=== PATIENT | female | born 1985 | race Caucasian/White ===

== ENCOUNTER 2024-03-28 05:33 | Inpatient (IN) | payer BC ==
[2024-03-28] MEDS ORDERED: HYDROcodone/Acetaminophen 5/325 mg Tablet PO PRN ×2 (08:11→17:33)
[2024-03-28] MEDS ORDERED: Ibuprofen 800 MG TAB PO PRN (08:11)
[2024-03-28] MEDS ORDERED: Promethazine HCl 25 MG/ML VIAL IM PRN ×3 (08:11→17:33)
[2024-03-28] MEDS ORDERED: Diphenoxylate HCl/Atropine Tablet PO PRN (08:11)
[2024-03-28] MEDS ORDERED: Misoprostol 200 MCG TAB PR PRN (08:11)
[2024-03-28] MEDS ORDERED: Oxytocin 30 units/NS 500 ML 500 ML IV SCH ×2 (08:11)
[2024-03-28] MEDS ORDERED: Ondansetron PF 4 MG/2 ML Vial IVP PRN ×3 (08:11→17:33)
[2024-03-28] MEDS ORDERED: Acetaminophen 500 MG TAB PO PRN (08:11)
[2024-03-28] MEDS ORDERED: Carboprost 250 MCG/ML AMP IM PRN (08:11)
[2024-03-28] MEDS ORDERED: fentaNYL 50 mcg/mL 1 mL Vial SLOW IVP PRN (08:11)
[2024-03-28] MEDS ORDERED: hydrALAZINE 20 MG/ML VIAL SLOW IVP PRN ×2 (08:11→17:33)
[2024-03-28] MEDS ORDERED: Tranexamic Acid 1,000 MG/10 ML VIAL IVP PRN (08:11)
[2024-03-28] MEDS ORDERED: Lidocaine 1% (PF) 30 ML VIAL SC PRN (08:11)
[2024-03-28] MEDS ORDERED: Methylergonovine 0.2 MG/ML VIAL IM PRN (08:11)
[2024-03-28 08:16] VITALS: BMI 38.2
[2024-03-28 08:36] LABS: ALT (SGPT) 28 U/L (8-55); AST (SGOT) 23 U/L (5-34); Albumin 2.5 g/dL (3.5-5.0); Alkaline Phosphatase 231 U/L (40-110); Anion Gap 15 mmol/L (10-20); BUN (Urea Nitrogen) 13 mg/dL (7.0-18.7); Bilirubin, Total 0.3 mg/dL (0.2-1.2); Calc. Creatinine Clearance 201 mL/min (70-130); Calcium 8.7 mg/dL (7.8-10.44); Carbon Dioxide 20 mmol/L (22-29); Chloride 106 mmol/L (98-107); Estimated GFR 115; Globulin 3.4 g/dL (2.4-3.5); Glucose 106 mg/dL (70-105); Hematocrit 36.1 % (34.9-44.5); Hemoglobin 11.7 g/dL (12.0-15.5); Mean Corpuscular HGB CONC 32.4 g/dL (32.0-36.0); Mean Corpuscular Hemoglobin 29.5 pg (27.0-33.0); Mean Corpuscular Volume 90.9 fL (81.6-98.3); Mean Platelet Volume 9.2 fL (7.4-10.4); Platelet Count 264 10x3/uL (150-450); Potassium 4.3 mmol/L (3.5-5.1); Protein, Total 5.9 g/dL (6.0-8.3); RBC Distribution Width 13.9 % (11.5-14.5); Red Blood Cell (RBC) Count 3.97 10x6/uL (3.90-5.03); Sodium 137 mmol/L (136-145); White Blood Cell (WBC) Count 10.9 10x3/uL (3.5-10.5)
[2024-03-28 08:54] LABS: HBsAg Index 0.21 S/CO (0-0.99); Hep B Surf Ag - L&D Non-Reactive S/CO (NonReactive)
[2024-03-28 08:56] LABS: Syphilis Antibody Nonreactive (Nonreactive); Syphilis Antibody Index 0.03 S/CO (<1.00 Non-Reactive)
[2024-03-28] MEDS ORDERED: Moisturizing Cream (Eucerin) 113 GM JAR TOP PRN (09:53)
[2024-03-28] MEDS ORDERED: Naloxone HCl 0.4 mg/ml Vial IVP PRN ×2 (09:53)
[2024-03-28] MEDS ORDERED: diphenhydrAMINE 50 MG/ML VIAL IVP PRN (09:53)
[2024-03-28] MEDS ORDERED: Lactated Ringer's 500 ML IV PRN (09:53)
[2024-03-28] MEDS ORDERED: ePHEDrine Sulfate 50 MG/10 ML VIAL SLOW IVP PRN (09:53)
[2024-03-28] MEDS ORDERED: fentaNYL 2 mcg/Ropivacaine 0.2% Epidural 100 ML CADD EPIDURAL SCH (10:00)
[2024-03-28] MEDS ORDERED: Communication Order-Pharmacy FS SCH (10:00)
[2024-03-28] MEDS: fentaNYL/Ropivacaine Epidural 100 ML ONE (10:40)
[2024-03-28] MEDS: Acetaminophen 325 MG TAB PO PRN (17:24)
[2024-03-28] MEDS: Oxytocin 30 units/NS 500 ML 500 ML ONE (17:31)
[2024-03-28] MEDS: Lactated Ringer's 1,000 ML IV SCH (17:31)
[2024-03-28] MEDS ORDERED: Bisacodyl 10 MG SUPP PR PRN (17:33)
[2024-03-28] MEDS ORDERED: Boostrix 0.5 ML (Tdap) VIAL (>/=7 yrs of age) IM ONE (17:33)
[2024-03-28] MEDS ORDERED: Preparation H Ointment 28 GM TUBE PR PRN (17:33)
[2024-03-28] MEDS ORDERED: diphenhydrAMINE 25 MG CAP PO PRN (17:33)
[2024-03-28] MEDS ORDERED: Milk Of Magnesia 30 ML UDCUP PO PRN (17:33)
[2024-03-28] MEDS ORDERED: Lanolin Ointment 7 GM TUBE TOP PRN (17:33)
[2024-03-28] MEDS: Benzocaine-Menthol 82.5 ML CAN TOP PRN (21:02)
[2024-03-28] MEDS: Ibuprofen 800 MG TAB PO SCH (21:03)
[2024-03-28] MEDS: Witch Hazel 100 PAD JAR TOP PRN (21:03)
[2024-03-28] MEDS: Docusate 100 MG CAP PO SCH (21:04)
[2024-03-28] MEDS: Ferrous Sulfate 325 MG TAB PO SCH (21:05)
[2024-03-29] MEDS: Prenatal Vitamin 1 TAB PO SCH (08:35)
[2024-03-29] MEDS: Ferrous Sulfate 325 MG TAB PO SCH (08:35)
[2024-03-29 11:47] VITALS: BP 132/73; TEMP 97.8
== END 2024-03-29 16:45 | disposition home or self-care (01) | DRG 806 ==
LOC: CSHLD 05:33 → CSHPP 17:50
PROVIDERS: ADMIT Obstetrics & Gynecology; ATTEND Obstetrics & Gynecology
PROC: 10E0XZZ Delivery of Products of Conception, External Approach (ICD-10-PCS; principal; 2024-03-28)
PROC: 3E0S3BZ Introduction of Anesthetic Agent into Epidural Space, Percutaneous Approach (ICD-10-PCS; 2024-03-28)
DX: O24.429 Gestational diabetes mellitus in childbirth, unspecified control (principal); O10.92 Unspecified pre-existing hypertension complicating childbirth; Z37.0 Single live birth; Z3A.40 40 weeks gestation of pregnancy
CPT/HCPCS: 36415; 36416; 51702; 72020; 80053; 85027; 86780; 86850; 86900; 86901; 87340